=== PATIENT | female | born 1995 | race Two or more races ===

== ENCOUNTER 2024-04-09 09:03 | Emergency (ER) | payer OTHER ==
[~2024-04-09] VITALS: Ht 160 cm; Wt 56.7 kg
[2024-04-09 09:07] VITALS: BP 116/83
[2024-04-09] MEDS ORDERED: ABILIFY10 MG PO (09:10)
[2024-04-09] MEDS ORDERED: ZOLOFT50 MG PO (09:10)
[2024-04-09] MEDS ORDERED: RINGERS SOLUTION,LACTATED 1,000 ML IV STA (09:26)
[2024-04-09] MEDS ORDERED: FAMOtidine 10 MG/ML (4ML VIAL) IV STA (09:27)
[2024-04-09] MEDS ORDERED: ONDANSETRON HCL 2 MG/ML VIAL IV ONE (09:30)
[2024-04-09 10:09] LABS: HEMATOCRIT 40.5 % (36.0-45.00); HEMOGLOBIN 13.5 g/dL (12.0-15.00); MEAN CELL VOLUME 85.4 fL (80.00-100.00); MEAN CORPUSCULAR HEMOGLOBIN 28.5 pg (27.00-32.0); MEAN CORPUSCULAR HGB CONC 33.4 g/dl (32.0-36.0); PLATELET COUNT 332 K/uL (150-450); RED BLOOD COUNT 4.74 M/uL (4.00-6.00); RED CELL DISTRIBUTION WIDTH 13.2 % (11.5-14.5)
[2024-04-09 10:36] LABS: CALCIUM 9.7 mg/dL (8.5-10.1); CREATININE SERUM 1.11 mg/dL (0.55-1.02); GFR 57.71; POTASSIUM 3.26 mEq/L (3.5-5.1)
[2024-04-09 10:59] LABS: URINE APPEARANCE Clear; URINE BILIRRUBIN Negative (NEGATIVE); URINE BLOOD Small; URINE COLOR Yellow; URINE GLUCOSE Negative (NEGATIVE); URINE LEUKOCYTE Negative; URINE NITRATE Negative
[2024-04-09 11:02] LABS: URINE BACTERIA 2000.7 uL (0.0-1933); URINE EPITHELIAL CELLS 104.9 uL (0.0-38.8); URINE RBC 155.8 uL (0.0-20.8); URINE WBC 49.7 uL (0.0-23.2)
[2024-04-09 11:41] LABS: URINE CAST 0.61 uL (0.0-1.40); URINE KETONE 40 (NEGATIVE); URINE PROTEIN 100 (NEGATIVE)
[2024-04-09 11:46] LABS: URINE MUCUS MODERATE
[2024-04-09 14:25] VITALS: O2SAT 100
== END 2024-04-09 14:28 | disposition home or self-care (01) ==
LOC: ER 09:03
PROVIDERS: General Practice
DX: K52.9 Noninfective gastroenteritis and colitis, unspecified (principal); E86.0 Dehydration; R11.10 Vomiting, unspecified